=== PATIENT | female | born 1985 | race Caucasian/White ===

== ENCOUNTER 2017-07-31 11:13 | Emergency (ER) | payer OTHER ==
[~2017-07-31] VITALS: Ht 154.9 cm; Wt 74.8 kg
[~2017-07-31 11:13] MED LIST: ALBU90OI INH; AMOX500 PO; AMOX875 PO; AZIT250 PO; BIRTH CONTROL; BUSPAR PO; Bactrim Ds Tab1 EACH PO; Benadryl 50 mg50 MG PO; CIPR500; CYCL10 PO; Cyclobenzaprine5 MG PO; DOXY100 PO; FAMO20 PO; Flagyl500 MG PO; Flonase 0.05% N16 GM; HYDACE10B PO; HYDACE5 PO; HYDGUAL120 PO; IBUP800 PO; LORA.5 PO; METPRE4DP PO; MULVITMINE PO; NAPR500 PO; Norco 5-325 Ta1 EACH PO; PAXIL PO; PENVK500 PO; PRAZOSIN PO; PRED20 PO; PROM25 PO; PSEU120ER PO; Percocet 5-3251 EACH PO; Prednisone20 MG PO; RXCYCL10 PO; RXHYDACE PO; Robaxin500 MG PO; SULF10OPSA OD; SULF10OPSA OU; SULTRIDS PO; TRAM50 PO; Triamcinolone A15 GM TOP; Ultram50 MG PO; Zofran Odt4 MG SL; [UNRECOGNIZED DRUG - OTHER]
[2017-07-31] MEDS ORDERED: Norco 5-325 Ta1 EACH PO (11:47)
[2017-07-31] MEDS ORDERED: IBUP600 PO (11:47)
== END 2017-07-31 11:50 | disposition home or self-care (01) ==
LOC: ER 11:13
DX: M54.5 Low back pain (principal); F41.9 Anxiety disorder, unspecified; F32.9 Major depressive disorder, single episode, unspecified; F43.10 Post-traumatic stress disorder, unspecified; F31.9 Bipolar disorder, unspecified; F17.210 Nicotine dependence, cigarettes, uncomplicated
CPT/HCPCS: 99283

== ENCOUNTER 2018-06-29 10:36 | Emergency (ER) | payer OTHER ==
[~2018-06-29] VITALS: Ht 154.9 cm; Wt 81.7 kg
[~2018-06-29 10:36] MED LIST changes: +IBUP600 PO
[2018-06-29 11:31] LABS: Influenza A Negative (NEGATIVE); Influenza B Negative (NEGATIVE)
[2018-06-29] MEDS ORDERED: Veetids 500500 MG PO (11:33)
== END 2018-06-29 11:40 | disposition home or self-care (01) ==
LOC: ER 10:36
PROVIDERS: Physician Assistant
DX: J02.0 Streptococcal pharyngitis (principal); F17.210 Nicotine dependence, cigarettes, uncomplicated
CPT/HCPCS: 87081; 87430; 87804; 96372; 99283-25; J1100; J1885

== ENCOUNTER 2019-02-21 15:30 | Emergency (ER) | payer OTHER ==
[~2019-02-21] VITALS: Ht 152.4 cm; Wt 89.8 kg
[~2019-02-21 15:30] MED LIST changes: +Veetids 500500 MG PO
== END 2019-02-21 16:35 | disposition home or self-care (01) ==
LOC: ER 15:30
DX: S30.0XXA Contusion of lower back and pelvis, initial encounter (principal); F41.9 Anxiety disorder, unspecified; F32.9 Major depressive disorder, single episode, unspecified; F43.10 Post-traumatic stress disorder, unspecified; Z87.891 Personal history of nicotine dependence; W18.30XA Fall on same level, unspecified, initial encounter
CPT/HCPCS: 72220; 99283-25

== ENCOUNTER → 2019-05-01 | Outpatient (CLI) | payer OTHER | END | disposition home or self-care (01) | LOC: LAB 19:18 → LAB SHORT 19:18 | DX: J02.9 Acute pharyngitis, unspecified (principal) | CPT/HCPCS: 87081 ==

== ENCOUNTER → 2019-08-20 | Outpatient (CLI) | payer OTHER ==
[~2019-08-20] MED LIST changes: +ESCI10 PO; +NEXPLANON68 MG
[2019-08-20 19:22] LABS: BASOPHILS ABSOLUTE AUTO 0.05 K/mm3 (0.00-0.23); BASOPHILS PERCENT AUTO 1 % (0-2); EOSINOPHILS ABSOLUTE AUTO 0.11 K/mm3 (0.00-0.68); EOSINOPHILS PERCENT AUTO 2 % (0-6); Hematocrit 45.1 % (33.0-51.0); Hemoglobin 14.7 g/dL (11.5-16.0); IMMATURE GRAN ABSOLUTE AUTO 0.01 K/mm3 (0.00-0.10); IMMATURE GRAN PERCENT AUTO 0 % (0-1); LYMPHOCYTES ABSOLUTE AUTO 2.33 K/mm3 (0.84-5.20); LYMPHOCYTES PERCENT AUTO 41 % (21-46); MONOCYTES ABSOLUTE AUTO 0.88 K/mm3 (0.16-1.47); MONOCYTES PERCENT AUTO 15 % (4-13); Mean Corpuscular HGB 30.8 pg (26.0-34.0); Mean Corpuscular HGB Conc 32.6 g/dL (31.5-36.5); Mean Corpuscular Volume 95 fL (80-100); Mean Platelet Volume 10.6 fL (9.1-12.4); NEUTROPHILS ABSOLUTE AUTO 2.34 K/mm3 (1.96-9.15); NEUTROPHILS PERCENT AUTO 41 % (41-73); Platelet Count 290 K/mm3 (150-400); RDW Coefficient Variation 12.5 % (11.7-14.2); RDW Standard Deviation 43.1 fL (35.1-46.3); Red Blood Cell Count 4.77 M/mm3 (3.80-5.20); White Blood Cell Count 5.72 K/mm3 (4.00-11.30)
[2019-08-20 20:12] LABS: Alanine Aminotransfer (ALT/SGP 61 U/L (12-78); Albumin, Blood 4.3 g/dL (3.4-5.0); Alk Phos 111 U/L (50-136); Anion Gap 6 mmol/L (6-16); Aspartate Aminotrans (AST/SGOT 30 U/L (12-37); Bilirubin, Total 0.3 mg/dL (0.1-1.0); Blood Urea Nitrogen 11 mg/dL (8-24); Bun/Creatinine Ratio 16.4 (12.0-20.0); CO2, Blood 22 mmol/L (21-32); Calcium, Blood 9.4 mg/dL (8.5-10.1); Chloride, Blood 108 mmol/L (98-108); Creatinine, Blood 0.67 mg/dL (0.40-1.00); Globulin, Blood 4.3 g/dL (2.2-4.0); Glomerular Filtration Rate >60 (60-); Glucose, Blood 80 mg/dL (70-99); Sodium, Blood 136 mmol/L (136-145); Total Protein, Blood 8.6 g/dL (6.4-8.2)
== END | disposition home or self-care (01) ==
LOC: LAB 15:24 → LAB SHORT 15:24
PROVIDERS: Obstetrics & Gynecology
DX: Z01.812 Encounter for preprocedural laboratory examination (principal)
CPT/HCPCS: 80053; 85025

== ENCOUNTER 2019-08-27 10:15 | Day surgery (SDC) | payer OTHER ==
[~2019-08-27] VITALS: Ht 152.4 cm; Wt 87.9 kg
--- NOTE | 2019-08-27 11:13 | NUR ---
08/27/19 1113 Tamera Mcbride V 1 FAILED IV IN L HAND, 1 FAILED IN R HAND, 1 FAILED IN R ELBOW. IV PLACED IN L HAND.
--- NOTE | 2019-08-27 14:33 | NUR ---
08/27/19 1433 Maryann Drew RECEIVED REPORT FROM VERO CALERO IN PACU. PATIENT BROUGHT TO STEPDOWN AND IS CONTINUING TO C/O OF HER THROAT HURTING. PATIENT IS USING ICE CHIPS, COUGHING OFF AND ON AND NAUSEOUS. SHE WAS ABLE TO TRANSITION TO RECLINER WITH VERY LITTLE ASSISTANCE. SHE IS MEDICATED AGAIN FOR NAUSEA PER MD ORDERS.
== END 2019-08-27 15:04 | disposition home or self-care (01) ==
LOC: ORSCSDS 10:15
PROVIDERS: Obstetrics & Gynecology
PROC: 0UT64ZZ Resection of Left Fallopian Tube, Percutaneous Endoscopic Approach (ICD-10-PCS; principal; 2019-08-27 12:00)
PROC: 0U5F4ZZ Destruction of Cul-de-sac, Percutaneous Endoscopic Approach (ICD-10-PCS; principal; 2019-08-27 12:00)
PROC: 0U554ZZ Destruction of Right Fallopian Tube, Percutaneous Endoscopic Approach (ICD-10-PCS; principal; 2019-08-27 12:00)
PROC: 0U514ZZ Destruction of Left Ovary, Percutaneous Endoscopic Approach (ICD-10-PCS; principal; 2019-08-27 12:00)
DX: Z30.2 Encounter for sterilization (principal); N83.202 Unspecified ovarian cyst, left side; N80.3 Endometriosis of pelvic peritoneum; K66.0 Peritoneal adhesions (postprocedural) (postinfection); E66.01 Morbid (severe) obesity due to excess calories; Z68.37 Body mass index [BMI] 37.0-37.9, adult
CPT/HCPCS: 88302; 88305; J0171; J0330; J1885; J2250; J2405; J2765; J3010; J7120

== ENCOUNTER 2019-09-11 00:11 | Observation (INO) | payer OTHER ==
[~2019-09-11] VITALS: Ht 154.9 cm; Wt 90.1 kg
[2019-09-11 01:54] LABS: BASOPHILS ABSOLUTE AUTO 0.04 K/mm3 (0.00-0.23); BASOPHILS PERCENT AUTO 0 % (0-2); EOSINOPHILS ABSOLUTE AUTO 0.08 K/mm3 (0.00-0.68); EOSINOPHILS PERCENT AUTO 1 % (0-6); Hematocrit 40.2 % (33.0-51.0); Hemoglobin 13.4 g/dL (11.5-16.0); IMMATURE GRAN ABSOLUTE AUTO 0.05 K/mm3 (0.00-0.10); IMMATURE GRAN PERCENT AUTO 0 % (0-1); LYMPHOCYTES ABSOLUTE AUTO 2.56 K/mm3 (0.84-5.20); LYMPHOCYTES PERCENT AUTO 20 % (21-46); MONOCYTES ABSOLUTE AUTO 1.04 K/mm3 (0.16-1.47); MONOCYTES PERCENT AUTO 8 % (4-13); Mean Corpuscular HGB 31.2 pg (26.0-34.0); Mean Corpuscular HGB Conc 33.3 g/dL (31.5-36.5); Mean Corpuscular Volume 94 fL (80-100); NEUTROPHILS ABSOLUTE AUTO 8.77 K/mm3 (1.96-9.15); NEUTROPHILS PERCENT AUTO 70 % (41-73); RDW Coefficient Variation 12.5 % (11.7-14.2); Red Blood Cell Count 4.29 M/mm3 (3.80-5.20); White Blood Cell Count 12.54 K/mm3 (4.00-11.30)
[2019-09-11 01:56] LABS: Mean Platelet Volume 10.5 fL (9.1-12.4); Platelet Count 280 K/mm3 (150-400)
[2019-09-11 02:36] LABS: Alanine Aminotransfer (ALT/SGP 196 U/L (12-78); Albumin, Blood 3.6 g/dL (3.4-5.0); Albumin/Globulin Ratio 0.9 (0.8-1.8); Alk Phos 115 U/L (50-136); Anion Gap 6 mmol/L (6-16); Aspartate Aminotrans (AST/SGOT 318 U/L (12-37); Bilirubin, Total 0.6 mg/dL (0.1-1.0); Blood Urea Nitrogen 14 mg/dL (8-24); Bun/Creatinine Ratio 18.2 (12.0-20.0); CO2, Blood 23 mmol/L (21-32); Chloride, Blood 110 mmol/L (98-108); Creatinine, Blood 0.77 mg/dL (0.40-1.00); Globulin, Blood 4.2 g/dL (2.2-4.0); Glomerular Filtration Rate >60 (60-); Glucose, Blood 152 mg/dL (70-99); Sodium, Blood 139 mmol/L (136-145); Total Protein, Blood 7.8 g/dL (6.4-8.2)
[2019-09-11 03:11] LABS: Source, Urine Clean Catch
[2019-09-11 03:13] LABS: Bilirubin, Urine Neg (Neg); Blood, Urine Neg (Neg); Glucose Qualitative, Urine Neg (Neg); Ketones, Urine Neg (Neg); Leukocyte Esterase, Urine Neg (Neg); Nitrite, Urine Neg (Neg); Protein, Urine Neg (Neg); Urobilinogen, Urine NORM (Normal)
[2019-09-11 03:16] LABS: Appearance, Urine Clear (Clear); Color, Urine Yellow (P-Yellow)
--- NOTE | 2019-09-11 11:48 | NUR ---
PT TO DAY SURGERY VIA BHARATHI
--- NOTE | 2019-09-11 12:14 | NUR ---
History, Chart, Medications and Allergies reviewed before start of procedure. Lungs clear T/O to Auscultation. Patient confirms NPO status and agrees with scheduled surgery. Pre-Op teaching done. Pt verbalizes understanding.
--- NOTE | 2019-09-11 13:01 | NUR ---
UPPER DENTURE REMOVED AND PLACED IN PACU POST SURGERY.
--- NOTE | 2019-09-11 15:35 | NUR ---
POST OP PT ARRIVES POST OP, ALERT, ORIENTED. ABD LAP SITES x 4. GAUZE W/ OPSITE OVER. NO DRAINAGE NOTED.
--- NOTE | 2019-09-11 19:33 | NUR ---
SHIFT SUMMARY PT HAS DONE VERY WELL POST OP. TOLERATING PO, VOIDING, AMBULATING.
--- NOTE | 2019-09-12 08:05 | NUR ---
SHIFT SUMMARY: ADOLFO IS POD1 FOR A LAPAROSCOPIC CHOLECYSTECTOMY. SHE RESTED COMFORTABLY FOR THE MAJORITY OF THE NIGHT, REQUIRING PO MEDICATION TO CONTROL HER PAIN. A&OX4. SHE IS INDEPENDENT IN THE ROOM. SHE IS TOLERATING REGULAR DIET WELL. SHE IS LYING COMFORTABLY IN BED WITH HER CALL LIGHT IN REACH. REPORT TO DAY SHIFT RN.
[2019-09-12] MEDS ORDERED: OXYC5 PO (13:04)
--- NOTE | 2019-09-12 13:53 | NUR ---
DISCHARGE PT DISCHARGED HOME FROM UNIT AT APROX 1315. PT GIVEN WRITTEN AND VERBAL DISCHARGE INSTRUCTIONS AND VERBALIZED UNDERSTANDING OF THESE INSTRUCTIONS. IV REMOVED, PT TOLERATED WELL. WHEELCHAIR TO CAR.
== END 2019-09-12 13:21 | disposition home or self-care (01) ==
LOC: ER 00:11 → ERHOLD 00:12 → SURS 07:32 → ER 07:32 → SURS 07:32 → ERHOLD 08:28 → SURS 08:28
PROVIDERS: Emergency Medicine; ADMIT Surgery
PROC: 0FT44ZZ Resection of Gallbladder, Percutaneous Endoscopic Approach (ICD-10-PCS; principal; 2019-09-11 11:45)
DX: K81.2 Acute cholecystitis with chronic cholecystitis (principal); E66.9 Obesity, unspecified; Z68.36 Body mass index [BMI] 36.0-36.9, adult; F17.210 Nicotine dependence, cigarettes, uncomplicated
CPT/HCPCS: 36415; 76705; 80053; 81003; 81025; 83690; 85025; 88304; 93005; 93010; 96365; 96375; 99285-25; A9270-GY; J1100; J1170; J1885; J2250; J2405; J2543; J2704; J3010; J7030; J7120

== ENCOUNTER → 2020-06-08 | Outpatient (CLI) | payer OTHER ==
[~2020-06-08] MED LIST changes: +OXYC5 PO
== END | disposition home or self-care (01) ==
LOC: LAB EV 12:47 → LAB SHORT 12:47
DX: J02.9 Acute pharyngitis, unspecified (principal)
CPT/HCPCS: 87081

== ENCOUNTER → 2022-03-28 | Outpatient (CLI) | payer OTHER ==
[2022-03-28 13:56] LABS: BASOPHILS ABSOLUTE AUTO 0.06 K/mm3 (0.00-0.23); BASOPHILS PERCENT AUTO 1 % (0-2); EOSINOPHILS ABSOLUTE AUTO 0.12 K/mm3 (0.00-0.68); EOSINOPHILS PERCENT AUTO 1 % (0-6); Hematocrit 42.5 % (33.0-51.0); Hemoglobin 14.9 g/dL (11.5-16.0); IMMATURE GRAN ABSOLUTE AUTO 0.04 K/mm3 (0.00-0.10); IMMATURE GRAN PERCENT AUTO 1 % (0-1); LYMPHOCYTES ABSOLUTE AUTO 2.65 K/mm3 (0.84-5.20); LYMPHOCYTES PERCENT AUTO 30 % (21-46); MONOCYTES ABSOLUTE AUTO 0.68 K/mm3 (0.16-1.47); MONOCYTES PERCENT AUTO 8 % (4-13); Mean Corpuscular HGB Conc 35.1 g/dL (31.5-36.5); Mean Corpuscular Volume 91 fL (80-100); Mean Platelet Volume 9.5 fL (9.1-12.4); NEUTROPHILS PERCENT AUTO 60 % (41-73); Platelet Count 327 K/mm3 (150-400); RDW Coefficient Variation 12.2 % (11.7-14.2); RDW Standard Deviation 40.3 fL (35.1-46.3); Red Blood Cell Count 4.66 M/mm3 (3.80-5.20); White Blood Cell Count 8.85 K/mm3 (4.00-11.30)
[2022-03-28 14:09] LABS: Albumin, Blood 4.1 g/dL (3.4-5.0); Bilirubin, Total 0.2 mg/dL (0.1-1.0); Calcium, Blood 9.4 mg/dL (8.5-10.1); Creatinine, Blood 0.83 mg/dL (0.40-1.00); Globulin, Blood 4.2 g/dL (2.2-4.0); Potassium, Blood 4.1 mmol/L (3.5-5.5); Total Protein, Blood 8.3 g/dL (6.4-8.2)
== END ==
LOC: LAB SHORT 13:43
PROVIDERS: Family Medicine
DX: R10.31 Right lower quadrant pain (principal)
CPT/HCPCS: 80053; 85025

== ENCOUNTER 2024-07-01 05:34 | Inpatient (IN) | payer OTHER ==
[~2024-07-01] VITALS: Ht 154.9 cm; Wt 77.4 kg
[2024-07-01] VITALS (22 sets, daily range): BP systolic 111–138; BP diastolic 49–98
[~2024-07-01 05:34] MED LIST changes: +Adipex-P37.5 M1 PO; +Atarax10 MG PO; +BUPR75; +BUSP5 PO; +LAMO25 PO; +ONDA4ODT MM
[2024-07-01] MEDS ORDERED: Ketorolac Tromethamine 30mg Vial ONE (06:10)
[2024-07-01] MEDS ORDERED: Dexamethasone Sod Phos 10 MG/ML 1ML VIAL ONE (06:10)
[2024-07-01] MEDS ORDERED: Rocuronium Bromide 10 MG/ML 5ML Injection IV ONE (06:10)
[2024-07-01] MEDS ORDERED: Ondansetron HCl 2 MG / ML 2ML Vial ONE (06:10)
[2024-07-01] MEDS ORDERED: Sugammadex Sodium 200 MG/2ML SDV (100 MG/ML) ONE (06:11)
[2024-07-01] MEDS ORDERED: FentaNYL Citrate 50 MCG/ML 5 ML Injection ONE (06:11)
[2024-07-01] MEDS ORDERED: propofoL 20 ML IV ONE (06:11)
[2024-07-01] MEDS ORDERED: Lactated Ringer's 1,000 ML IV SCH ×2 (06:25→09:15)
[2024-07-01] MEDS ORDERED: CeFAZolin Sodium 2,000 MG in NS 100 ML IV SCH (06:25)
--- NOTE | 2024-07-01 06:45 | NUR ---
INTO [facility]. PT REPORTS 4/10 ABDOMINAL PAIN THAT IS ONGOING. HISTORY AND ALLERGIES REVIEWED. LUNGS CLEAR-NO NOTED SOB-SATS>90% ON RA. NPO STATUS CONFIRMED.CHLORHEXIDINE SHOWER AND WIPE X 2. RIDE HOME CONFIRMED.
[2024-07-01] MEDS ORDERED: CeFAZolin Sodium 2,000 MG VIAL ONE (06:57)
[2024-07-01] MEDS ORDERED: Midazolam HCl 1MG / ML 2ML Vial IV ONE (07:05)
[2024-07-01] MEDS ORDERED: EpiNEPhrine 1 MG/1 ML 1ML Vial ONE (07:13)
[2024-07-01] MEDS ORDERED: Bupivacaine 0.5% HCl 5 MG/ML 30MLVIAL ONE (07:14)
[2024-07-01] MEDS ORDERED: Methylene Blue 1% 100 MG/10 ML VIAL ONE (08:11)
--- NOTE | 2024-07-01 08:29 | NUR ---
07/01/[address] IN TO HELP WITH REPAIR. SEE DR HOWARD AND DR SCHNEIDER NOTES.
[2024-07-01] MEDS ORDERED: HYDROcodone 5-APAP 325 TAB PO PRN (09:10)
[2024-07-01] MEDS ORDERED: FLU VACC TS2024-25(6MOS UP)/PF 45 MCG/0.5 ML SYRINGE IM SCH (09:10)
[2024-07-01] MEDS ORDERED: Ibuprofen 400 MG Tab PO PRN (09:10)
[2024-07-01] MEDS ORDERED: Acetaminophen 325 MG TABLET PO PRN (09:10)
[2024-07-01] MEDS ORDERED: Simethicone 80 MG Chew PO PRN (09:15)
[2024-07-01] MEDS ORDERED: OxyCODONE HCL 5 MG TAB PO PRN (09:15)
[2024-07-01] MEDS ORDERED: HYDROmorphone HCl/Pf 1MG SYR ONE ×2 (09:16→09:56)
[2024-07-01] MEDS ORDERED: FentaNYL Citrate 50 MCG/ML 2 ML Injection ONE (09:16)
[2024-07-01] MEDS ORDERED: fentaNYL citrate 20 MCG/ML 30MLSYR IV PRN (09:25)
[2024-07-01] MEDS ORDERED: Lactated Ringer's 1,000 ML IV ONE (09:40)
--- NOTE | 2024-07-01 11:10 | NUR ---
ARRIVAL TO UNIT AFTER RECEIVING REPORT FROM WIPER BLENDER, PATIENT TRANSFERRED TO UNIT AT APPROX 1040. VSS. PATIENT ON 2L VIA NC ON ARRIVAL, TOLERATING ROOM AIR. OCCASIONAL DRY COUGH - PILLOW PROVIDED FOR SPLINTING. SATs >90%. RR EVEN, UNLABORED. S/P TOTAL ABD HYSTER W/ TRANSVERSE LOWER ABD INCISION. DRESSING PLACED IN OR SATURATED WITH SEROSANGUINOUS DRAINAGE - ABD PAD AND TAPE DRESSING PLACED. REPORTING 02/16 PAIN - JUNIOR PROJECT MANAGER PUMP SET UP WITH SALES AND DISTRIBUTION CLERK SUZANNA SHEARER. TOLERATING SIPS OF WATER AND SMALL SNACKS. LR INFUSING PER EMAR. CALL LIGHT IN REACH. FAMILY AT BEDSIDE.
[2024-07-01 11:40] LABS: BASOPHILS ABSOLUTE AUTO 0.05 K/mm3 (0.00-0.23); BASOPHILS PERCENT AUTO 0 % (0-2); EOSINOPHILS ABSOLUTE AUTO 0.01 K/mm3 (0.00-0.68); EOSINOPHILS PERCENT AUTO 0 % (0-6); Hematocrit 37.9 % (33.0-51.0); Hemoglobin 13.2 g/dL (11.5-16.0); IMMATURE GRAN ABSOLUTE AUTO 0.08 K/mm3 (0.00-0.10); IMMATURE GRAN PERCENT AUTO 1 % (0-1); LYMPHOCYTES ABSOLUTE AUTO 0.64 K/mm3 (0.84-5.20); LYMPHOCYTES PERCENT AUTO 4 % (21-46); MONOCYTES ABSOLUTE AUTO 0.44 K/mm3 (0.16-1.47); MONOCYTES PERCENT AUTO 3 % (4-13); Mean Corpuscular HGB 34.1 pg (26.0-34.0); Mean Corpuscular HGB Conc 34.8 g/dL (31.5-36.5); Mean Corpuscular Volume 98 fL (80-100); Mean Platelet Volume 9.4 fL (9.1-12.4); NEUTROPHILS ABSOLUTE AUTO 14.77 K/mm3 (1.96-9.15); NEUTROPHILS PERCENT AUTO 92 % (41-73); Platelet Count 210 K/mm3 (150-400); RDW Coefficient Variation 12.4 % (11.7-14.2); RDW Standard Deviation 44.7 fL (35.1-46.3); Red Blood Cell Count 3.87 M/mm3 (3.80-5.20); White Blood Cell Count 15.99 K/mm3 (4.00-11.30)
[2024-07-01] MEDS ORDERED: Ketorolac Tromethamine 30mg Vial IV SCH (12:00)
[2024-07-01] MEDS ORDERED: Estradiol 0.1 MG/24 HR Patch TOP SCH (12:00)
--- NOTE | 2024-07-01 16:30 | NUR ---
SHIFT SUMMARY NO ACUTE CHANGES SINCE ARRIVAL TO UNIT. VSS. TOLERATING ROOM AIR. S/P TOTAL ABD HYSTER. TRANSVERSE LOWER ABD INCISION W/ MINIMAL SEROSANGUINOUS DRAINAGE. DRESSING CURRENTLY C/D/I - CHANGED X2. MINIMAL DRAINAGE ON MARIA PAD. POST OP PAIN MANAGED PER EMAR W/ PO NORCO AND FLAT KNITTER. KPAD DEVICE IN PLACE. TOLERATING PO INTAKE. PITTS CATHETER IN PLACE - DRAINING TO GRAVITY. ABLE TO STAND AT BEDSIDE WITH SBA FOR LINE, DEVICE MANAGEMENT. CALL LIGHT IN REACH. SPOUSE AT BEDSIDE. WILL CONTINUE TO MONITOR AND REPORT TO ONCOMING RN.
[2024-07-02 04:37] VITALS: BP 111/85
[2024-07-02 05:50] LABS: BASOPHILS ABSOLUTE AUTO 0.03 K/mm3 (0.00-0.23); BASOPHILS PERCENT AUTO 0 % (0-2); EOSINOPHILS PERCENT AUTO 1 % (0-6); Hematocrit 34.2 % (33.0-51.0); Hemoglobin 11.7 g/dL (11.5-16.0); IMMATURE GRAN ABSOLUTE AUTO 0.06 K/mm3 (0.00-0.10); IMMATURE GRAN PERCENT AUTO 1 % (0-1); LYMPHOCYTES ABSOLUTE AUTO 2.24 K/mm3 (0.84-5.20); LYMPHOCYTES PERCENT AUTO 20 % (21-46); MONOCYTES ABSOLUTE AUTO 1.19 K/mm3 (0.16-1.47); MONOCYTES PERCENT AUTO 11 % (4-13); Mean Corpuscular HGB 33.7 pg (26.0-34.0); Mean Corpuscular HGB Conc 34.2 g/dL (31.5-36.5); Mean Corpuscular Volume 99 fL (80-100); Mean Platelet Volume 9.5 fL (9.1-12.4); NEUTROPHILS ABSOLUTE AUTO 7.46 K/mm3 (1.96-9.15); NEUTROPHILS PERCENT AUTO 67 % (41-73); Platelet Count 190 K/mm3 (150-400); RDW Coefficient Variation 12.4 % (11.7-14.2); RDW Standard Deviation 44.6 fL (35.1-46.3); Red Blood Cell Count 3.47 M/mm3 (3.80-5.20); White Blood Cell Count 11.08 K/mm3 (4.00-11.30)
--- NOTE | 2024-07-02 06:33 | NUR ---
SHIFT SUMMARY NOC. PT POD 1 FOR TOTAL ABD HYSTERECTOMY. A/O X4. PT'S DRESSING IS C/D/I ASIDE FROM LIGHT DRIED SANG DRAINAGE. MARGINS MARKED TO TRACK DRAINAGE, WITHIN MARGINS. PT TOLERATING PO INTAKE. PITTS PATENT AND DRAINING TO GRAVITY. PT HAS RIDE MECHANIC RUNNING AND RECEIVING ORAL NORCO. SCANT BLOOD ON MARIA PAD. PT MAKES NEEDS KNOWN S.O AT BEDSIDE. CALL LIGHT IN REACH.
[2024-07-02 07:14] VITALS: BP 110/68
--- NOTE | 2024-07-02 08:36 | NUR ---
ASSUMPTION OF CARE THIS RN ASSUMED CARE AT APPROX 0715. PATIENT ALERT AND ORIENTED X4. COMMUNICATES NEEDS EFFECTIVELY. AT BEDSIDE - ASSISTING WITH CARE NEEDED. PATIENT AMBULATING INDEPENDENTLY WITH SBA FROM . VSS. TOLERATING ROOM AIR, SATs >90%. RR EVEN, UNLABORED. POD 1 TOTAL ABD HYSTERECTOMY. PATIENT EAGER TO DC HOME TODAY - AERONAUTICS COMMISSION DIRECTOR PUMP PLACED ON SBA. PATIENT SHOWERED THIS MORNING - PAIN 5/10 FOLLOWING SHOWER WITH PO MANAGEMENT AND KPAD. MEDIPORE DRESSING PLACED ON TRANSVERSE LOWER ABD INCISION FOLLOWING SHOWER - MODERATE SEROSANGUINOUS DRAINAGE NOTED. TOLERATING PO INTAKE - REPORTS FLATULENCE AND X2 BMs LAST NIGHT. PITTS CATHETER IN PLACE - DRAINING YELLOW URINE TO GRAVITY. PATIENT AND HER EDUCATED ON CATHETER CARE - BOTH STATE UNDERSTANDING. CALL LIGHT IN REACH.
[2024-07-02 15:35] VITALS: BP 122/83
--- NOTE | 2024-07-02 17:18 | NUR ---
DISCHARGE NOTE NO ACUTE CHANGES SINCE PREVIOUS NOTES. VS REMAIN STABLE. INDEPENDENT IN ROOM - AMBULATING IN HALLWAY. POD 1 TOTAL ABD HYSTER - TRANSVERSE INCISION SITE REMAINS C/D/I. MANAGING PAIN WITH PRESCRIBED THERAPY. TOLERATING PO DIET. MINIMAL DRAINAGE ON MARIA PAD. PITTS CATHETER PATENT - DRAINING YELLOW URINE TO GRAVITY. DRAINAGE BAG CHANGED TO LEG BAG - PATIENT DEMONSTRATING MANAGEMENT OF DEVICE. MINIMAL BLEEDING ON MARIA PAD. MD SCHNEIDER TO BEDSIDE THIS AFTERNOON - DC HOME ORDERED. HARD SCRIPT FOR PRESCRIBED MEDICATIONS GIVEN TO FOR FULFILLMENT. IV REMOVED. DC EDUCATION PROVIDED - PATIENT STATES UNDERSTANDING. EXTRA MEDIPORE DRESSINGS PROVIDED FOR DRESSING CHANGES AT HOME NEEDED. PATIENT TRANSFERRED TO PERSONAL VEHICLE VIA WHEELCHAIR AT APPROX 1700. PERSONAL BELONGINGS WITH PATIENT.
== END 2024-07-02 17:04 | disposition home or self-care (01) | DRG 742 ==
LOC: MEDS 05:34 → PRE IP 07:30 → SURS 10:09
PROVIDERS: ADMIT Obstetrics & Gynecology
PROC: 0UT20ZZ Resection of Bilateral Ovaries, Open Approach (ICD-10-PCS; 2024-07-01)
PROC: 0TQB0ZZ Repair Bladder, Open Approach (ICD-10-PCS; 2024-07-01)
PROC: 0UT90ZZ Resection of Uterus, Open Approach (ICD-10-PCS; principal; 2024-07-01 07:30)
PROC: 0UT70ZZ Resection of Bilateral Fallopian Tubes, Open Approach (ICD-10-PCS; 2024-07-01 07:30)
DX: N80.00 Endometriosis of the uterus, unspecified (principal); N99.62 Intraoperative hemorrhage and hematoma of a genitourinary system organ or structure complicating other procedure
CPT/HCPCS: 36415; 85025; 94762; A9270; J0171; J0690; J1100; J1171; J1885; J2250; J2405; J2704; J3010; J7120; Q9968

== ENCOUNTER 2024-11-11 18:32 | Emergency (ER) | payer OTHER ==
[~2024-11-11] VITALS: Ht 157.5 cm; Wt 79.4 kg
[2024-11-11 18:36] VITALS: BP 157/99
[2024-11-11] MEDS ORDERED: Ondansetron HCl 2 MG / ML 2ML Vial IV ONE ×2 (18:40→21:20)
[2024-11-11] MEDS ORDERED: Ketorolac Tromethamine 30mg Vial IV ONE ×2 (18:40→21:15)
[2024-11-11] MEDS ORDERED: NS 1,000 ML IV SCH (18:40)
[2024-11-11 19:07] LABS: BASOPHILS ABSOLUTE AUTO 0.04 K/mm3 (0.00-0.23); BASOPHILS PERCENT AUTO 0 % (0-2); EOSINOPHILS PERCENT AUTO 1 % (0-6); Hematocrit 41.5 % (33.0-51.0); Hemoglobin 14.3 g/dL (11.5-16.0); IMMATURE GRAN ABSOLUTE AUTO 0.01 K/mm3 (0.00-0.10); IMMATURE GRAN PERCENT AUTO 0 % (0-1); LYMPHOCYTES ABSOLUTE AUTO 3.31 K/mm3 (0.84-5.20); LYMPHOCYTES PERCENT AUTO 37 % (21-46); MONOCYTES ABSOLUTE AUTO 0.71 K/mm3 (0.16-1.47); MONOCYTES PERCENT AUTO 8 % (4-13); Mean Corpuscular HGB 32.2 pg (26.0-34.0); Mean Corpuscular HGB Conc 34.5 g/dL (31.5-36.5); Mean Corpuscular Volume 94 fL (80-100); Mean Platelet Volume 9.9 fL (9.1-12.4); NEUTROPHILS ABSOLUTE AUTO 4.86 K/mm3 (1.96-9.15); NEUTROPHILS PERCENT AUTO 54 % (41-73); Platelet Count 267 K/mm3 (150-400); RDW Coefficient Variation 12.5 % (11.7-14.2); RDW Standard Deviation 42.8 fL (35.1-46.3); Red Blood Cell Count 4.44 M/mm3 (3.80-5.20); White Blood Cell Count 9.03 K/mm3 (4.00-11.30)
[2024-11-11 19:35] LABS: Albumin, Blood 4.1 g/dL (3.4-5.0); Albumin/Globulin Ratio 1.1 (0.8-1.8); Bilirubin, Total 0.3 mg/dL (0.1-1.0); Bun/Creatinine Ratio 15.2 (12.0-20.0); Calcium, Blood 9.1 mg/dL (8.5-10.1); Creatinine, Blood 0.79 mg/dL (0.40-1.00); Globulin, Blood 3.9 g/dL (2.2-4.0); Potassium, Blood 4.2 mmol/L (3.5-5.5)
[2024-11-11 19:41] LABS: Source, Urine Clean Catch
[2024-11-11 19:45] LABS: Appearance, Urine Hazy (Clear); Bilirubin, Urine Neg (Neg); Blood, Urine Neg (Neg); Color, Urine Yellow (P-Yellow); Glucose Qualitative, Urine Neg (Neg); Ketones, Urine Neg (Neg); Leukocyte Esterase, Urine 1+ (Neg); Nitrite, Urine Neg (Neg); Protein, Urine Neg (Neg); Specific Gravity, Urine 1.025 (1.003-1.022); Urobilinogen, Urine NORM (Normal)
[2024-11-11 19:59] LABS: Bacteria Many /hpf; Red Blood Cells, Urine 0-2 /hpf (0-2); Squamous Epithelial Cells Few /hpf (Few)
[2024-11-11] MEDS ORDERED: CEFP200 PO (20:30)
== END 2024-11-11 21:31 | disposition home or self-care (01) ==
LOC: ER 18:32
PROVIDERS: Emergency Medicine
DX: N12 Tubulo-interstitial nephritis, not specified as acute or chronic (principal); R11.0 Nausea; R30.0 Dysuria; Z87.891 Personal history of nicotine dependence
CPT/HCPCS: 74176; 80053; 81001; 85025; 87077; 87086; 87186; 96374; 96375; 99284-25; J1885; J2405; J7030

== ENCOUNTER → 2025-04-25 | Outpatient (CLI) | payer OTHER ==
[~2025-04-25] MED LIST changes: +CEFP200 PO
[2025-04-25 08:46] LABS: BASOPHILS ABSOLUTE AUTO 0.04 K/mm3 (0.00-0.23); BASOPHILS PERCENT AUTO 1 % (0-2); EOSINOPHILS ABSOLUTE AUTO 0.04 K/mm3 (0.00-0.68); EOSINOPHILS PERCENT AUTO 1 % (0-6); Hematocrit 42.3 % (33.0-51.0); Hemoglobin 14.8 g/dL (11.5-16.0); IMMATURE GRAN ABSOLUTE AUTO 0.01 K/mm3 (0.00-0.10); IMMATURE GRAN PERCENT AUTO 0 % (0-1); LYMPHOCYTES ABSOLUTE AUTO 1.89 K/mm3 (0.84-5.20); LYMPHOCYTES PERCENT AUTO 34 % (21-46); MONOCYTES ABSOLUTE AUTO 0.47 K/mm3 (0.16-1.47); MONOCYTES PERCENT AUTO 8 % (4-13); Mean Corpuscular HGB Conc 35.0 g/dL (31.5-36.5); Mean Corpuscular Volume 93 fL (80-100); NEUTROPHILS ABSOLUTE AUTO 3.18 K/mm3 (1.96-9.15); NEUTROPHILS PERCENT AUTO 57 % (41-73); NRBC ABSOLUTE 0.00 K/mm3 (0.00-0.02); NRBC Auto 0.0 /100 WBC (0.0-0.2); Platelet Count 291 K/mm3 (150-400); RDW Coefficient Variation 11.9 % (11.7-14.2); RDW Standard Deviation 40.9 fL (35.1-46.3)
[2025-04-25 08:54] LABS: Alanine Aminotransfer (ALT/SGP 87.0 U/L (12-78); Albumin, Blood 4.2 g/dL (3.4-5.0); Albumin/Globulin Ratio 1.0 (0.8-1.8); Anion Gap 14.0 mmol/L (3-11); Aspartate Aminotrans (AST/SGOT 44.0 U/L (12-37); Bilirubin, Total 0.6 mg/dL (0.1-1.0); Blood Urea Nitrogen 9.0 mg/dL (8-24); CO2, Blood 25.0 mmol/L (21-32); Calcium, Blood 9.6 mg/dL (8.5-10.1); Chloride, Blood 103.0 mmol/L (98-108); Creatinine, Blood 0.9 mg/dL (0.40-1.00); Globulin, Blood 4.1 g/dL (2.2-4.0); Glucose, Blood 116.0 mg/dL (70-99); Potassium, Blood 4.1 mmol/L (3.5-5.5); Sodium, Blood 138.0 mmol/L (136-145); Total Protein, Blood 8.3 g/dL (6.4-8.2)
== END | disposition home or self-care (01) ==
LOC: LAB 08:41 → LAB SHORT 08:41
PROVIDERS: Physician Assistant
DX: R10.31 Right lower quadrant pain (principal); R82.90 Unspecified abnormal findings in urine
CPT/HCPCS: 80053; 85025; 87086